=== PATIENT | female | born 1960 | race Caucasian/White ===

== ENCOUNTER 2017-11-18 14:48 | Emergency (ER) | payer OTHER ==
[~2017-11-18] VITALS: Ht 157.5 cm; Wt 63.0 kg
[2017-11-18 14:49] VITALS: BP 120/68
[2017-11-18] MEDS ORDERED: RISPERDAL 1 MG T1 MG PO (15:15)
[2017-11-18] MEDS ORDERED: TRAZODONE HCL50 MG PO (15:16)
[2017-11-18] MEDS ORDERED: RISPERDAL2 MG PO (15:16)
[2017-11-18] MEDS ORDERED: MELATONIN5 M1 PO (15:17)
[2017-11-18] MEDS ORDERED: BUSPIRONE HCL10 MG PO (15:17)
[2017-11-18] MEDS ORDERED: BRIMONIDINE OPHTHALMIC (15:19)
[2017-11-18] MEDS ORDERED: VITAMIN D2000 UNIT PO (15:20)
[2017-11-18] MEDS ORDERED: CLARITIN10 MG PO (15:21)
[2017-11-18] MEDS ORDERED: OMEPRAZOLE 20 M20 MG PO (15:21)
[2017-11-18] MEDS ORDERED: LATANOPROST 0.2.5 ML OPHTHALMIC (15:21)
[2017-11-18] MEDS ORDERED: EFFEXOR XR75 MG PO (15:22)
[2017-11-18] MEDS ORDERED: ACETAMINOPHEN325 M3 PO (15:23)
[2017-11-18] MEDS ORDERED: FLOVENT HFA 4444 MCG INH (15:23)
[2017-11-18] MEDS ORDERED: LOPERAMIDE 2 MG2 M1 PO (15:25)
== END 2017-11-18 17:19 | disposition home or self-care (01) ==
LOC: ER 14:48
DX: S01.81XA Laceration without foreign body of other part of head, initial encounter (principal); F41.9 Anxiety disorder, unspecified; I63.9 Cerebral infarction, unspecified; G62.9 Polyneuropathy, unspecified; Z88.5 Allergy status to narcotic agent; W18.30XA Fall on same level, unspecified, initial encounter; Y93.89 Activity, other specified; Y92.89 Other specified places as the place of occurrence of the external cause; Y99.8 Other external cause status

== ENCOUNTER 2018-07-26 16:59 | Emergency (ER) | payer OTHER ==
[~2018-07-26] VITALS: Ht 160 cm; Wt 72.6 kg
[~2018-07-26 16:59] MED LIST: ACETAMINOPHEN325 M3 PO; BRIMONIDINE OPHTHALMIC; BUSPIRONE HCL10 MG PO; CLARITIN10 MG PO; EFFEXOR XR75 MG PO; FLOVENT HFA 4444 MCG INH; LATANOPROST 0.2.5 ML OPHTHALMIC; LOPERAMIDE 2 MG2 M1 PO; MELATONIN5 M1 PO; OMEPRAZOLE 20 M20 MG PO; RISPERDAL 1 MG T1 MG PO; RISPERDAL2 MG PO; TRAZODONE HCL50 MG PO; VITAMIN D2000 UNIT PO
[2018-07-26] MEDS ORDERED: ALPHAGAN P5 ML OPHTHALMIC (17:09)
[2018-07-26] MEDS ORDERED: FLONASE 0.05%50 MCG NASAL (17:11)
[2018-07-26 17:53] VITALS: BP 136/61
== END 2018-07-26 19:47 | disposition home or self-care (01) ==
LOC: ER 16:59
DX: S01.81XA Laceration without foreign body of other part of head, initial encounter (principal); F41.9 Anxiety disorder, unspecified; G62.9 Polyneuropathy, unspecified; Z88.5 Allergy status to narcotic agent; Z86.73 Personal history of transient ischemic attack (TIA), and cerebral infarction without residual deficits; Z86.19 Personal history of other infectious and parasitic diseases; W18.39XA Other fall on same level, initial encounter; Y93.89 Activity, other specified; Y92.89 Other specified places as the place of occurrence of the external cause; Y99.8 Other external cause status

== ENCOUNTER 2018-10-18 14:37 | Emergency (ER) | payer OTHER ==
[~2018-10-18] VITALS: Ht 172.7 cm; Wt 81.7 kg
[~2018-10-18 14:37] MED LIST changes: +ALPHAGAN P5 ML OPHTHALMIC; +FLONASE 0.05%50 MCG NASAL
[2018-10-18 14:38] VITALS: BP 124/67
[2018-10-18 14:59] LABS: HEMATOCRIT 32.1 % (37.0-47.0); HEMOGLOBIN 10.7 gm/dL (12.0-15.0); MCH 31.2 pg (26.0-34.0); MCHC 33.5 g/dL (28.0-37.0); MCV 93.1 fL (80.0-100.0); RBC 3.45 mil/uL (4.20-5.00); RDW 14.5 % (10.5-14.5); WBC 7.5 thou/uL (4.0-11.0)
[2018-10-18 15:10] LABS: CALCIUM 9.3 mg/dL (8.5-10.1); CREATININE 0.6 mg/dL (0.6-1.0); POTASSIUM 4.4 mmol/L (3.5-5.1)
[2018-10-18 15:14] LABS: URINE BILIRUBIN NEGATIVE (Negative); URINE BLOOD NEGATIVE (Negative); URINE CLARITY CLEAR; URINE COLOR YELLOW; URINE GLUCOSE-RANDOM* NEGATIVE (Negative); URINE KETONES NEGATIVE (Negative); URINE NITRITE-REFLEX NEGATIVE (Negative); URINE PROTEIN (DIPSTICK) NEGATIVE (Negative); URINE UROBILINOGEN 0.2 E.U./dl (0.2-1.0)
[2018-10-18 15:15] LABS: URINE LEUKOCYTES-REFLEX 1+ (Negative)
[2018-10-18 15:21] LABS: AMP/METHAMP Negative (Negative); BARBITURATES Negative (Negative); BENZODIAZEPINES Negative (Negative); COCAINE Negative (Negative); METHADONE Negative (Negative); OPIATES Negative (Negative); PCP Negative (Negative)
[2018-10-18 15:23] LABS: CASTS None Seen /LPF (None Seen); CRYSTALS None Seen /LPF (None Seen); SQUAMOUS 4-10 Moderate /LPF (0-3); URINE RBC None Seen /HPF (0-2); URINE WBC-REFLEX 6-15 Few /HPF (0-5)
== END 2018-10-18 20:07 | disposition home or self-care (01) ==
LOC: ER 14:37
PROVIDERS: Emergency Medicine
DX: F91.8 Other conduct disorders (principal); F41.9 Anxiety disorder, unspecified; Z88.5 Allergy status to narcotic agent

== ENCOUNTER 2019-10-20 23:39 | Emergency (ER) | payer OTHER ==
[~2019-10-20] VITALS: Ht 160 cm; Wt 68.0 kg
[2019-10-21] MEDS ORDERED: MAGNESIUM OXID400 M1 PO (00:22)
[2019-10-21] MEDS ORDERED: K-DUR 20 MEQ T20 MEQ PO (00:23)
[2019-10-21] MEDS ORDERED: RISPERIDONE 1 MG1 MG PO (00:25)
[2019-10-21] MEDS ORDERED: VENLAFAXINE HCL75 M1 PO (00:26)
[2019-10-21] MEDS ORDERED: ALEVE220 MG PO (00:27)
[2019-10-21] MEDS ORDERED: ZOLOFT25 MG PO (00:27)
[2019-10-21] MEDS ORDERED: ROXIFOL-D TA500 UNIT PO (00:27)
[2019-10-21] MEDS ORDERED: CLARITIN10 MG PO (00:28)
[2019-10-21] MEDS ORDERED: ALPHAGAN P5 ML OPHTHALMIC (00:28)
[2019-10-21] MEDS ORDERED: BUSPIRONE HCL7.5 MG PO (00:28)
[2019-10-21] MEDS ORDERED: LEXAPRO20 MG PO (00:29)
[2019-10-21] MEDS ORDERED: LOPERAMIDE 2 MG2 M1 PO (00:30)
[2019-10-21 00:55] LABS: ABSOLUTE NEUTROPHILS 6.6 thou/uL (1.4-8.2); BASOPHILS 0.6 % (0.0-2.0); EOSINOPHILS 0.3 % (0.0-3.0); HEMATOCRIT 36.9 % (37.0-47.0); HEMOGLOBIN 12.6 gm/dL (12.0-15.0); LYMPHOCYTES 13.6 % (24.0-44.0); MCHC 34.1 g/dL (28.0-37.0); MCV 99.6 fL (80.0-100.0); MONOCYTES 5.5 % (1.0-8.0); PLATELET COUNT 240 thou/uL (150-400); RDW 12.8 % (10.5-14.5); WBC 8.3 thou/uL (4.0-11.0)
[2019-10-21 01:03] LABS: CALCIUM 9.3 mg/dL (8.5-10.1); CREATININE 0.6 mg/dL (0.6-1.0); POTASSIUM 4.2 mmol/L (3.5-5.1)
[2019-10-21 01:14] LABS: APTT 20.1 Seconds (24.5-32.8); INR 1.1
[2019-10-21 01:17] LABS: PROTIME 10.6 Seconds (9.3-11.4)
[2019-10-21] MEDS ORDERED: NORCO 5-325 TA1 EAC1 PO (01:25)
[2019-10-21 03:09] VITALS: BP 139/72
== END 2019-10-21 03:09 ==
LOC: ER 23:39
PROVIDERS: Emergency Medicine
DX: S42.331A Displaced oblique fracture of shaft of humerus, right arm, initial encounter for closed fracture (principal); Z79.899 Other long term (current) drug therapy; W18.39XA Other fall on same level, initial encounter; Y93.89 Activity, other specified; Y92.89 Other specified places as the place of occurrence of the external cause; Y99.8 Other external cause status